=== PATIENT | female | born 1930 | race Caucasian/White ===

== ENCOUNTER → 2018-04-04 | Outpatient (CLI) | payer OTHER ==
[~2018-04-04] MED LIST: IOPAMIDOL (ISOVUE 370) 100 ML BTL IV ONE
== END ==
LOC: FIMAGING 13:27
PROVIDERS: ATTEND Internal Medicine Cardiovascular Disease
DX: R07.9 Chest pain, unspecified (principal); I48.0 Paroxysmal atrial fibrillation
CPT/HCPCS: 71275; Q9967; 82565-PO

== ENCOUNTER → 2018-04-08 | Outpatient (CLI) | payer OTHER | LOC: BHFA 09:30 | PROVIDERS: ATTEND Internal Medicine Cardiovascular Disease | DX: I48.0 Paroxysmal atrial fibrillation (principal) ==

== ENCOUNTER 2018-05-18 12:16 | Day surgery (SDC) | payer OTHER ==
[2018-05-18] MEDS ORDERED: MIDAZOLAM 2 MG/2 ML VIAL IVP ONE (13:30)
[2018-05-18] MEDS ORDERED: BENZOCAINE UNIT DOSE SPRAY HURRICAINE MM ONE (13:30)
[2018-05-18] MEDS ORDERED: NS 500 ML IV ONE (13:30)
[2018-05-18] MEDS ORDERED: ATROPINE SULFATE 1 MG/10 ML SYR IVP ONE (13:30)
[2018-05-18] MEDS ORDERED: fentaNYL 100 MCG/2 ML INJ IVP ONE (13:30)
[2018-05-18 15:27] LABS: INR 1.78 (0.83-1.16); PROTIME(PATIENT) 20.8 SEC (12.0-15.0)
--- NOTE | 2018-05-18 16:08 | PDGENHP ---
History & Physical Chief Complaint: symptomatic afib Relevant Physical Exam: s1s2 irreg cta [id number] Cardiorespiratory Assessment: for cv
--- NOTE | 2018-05-18 16:08 | PDANEPAE ---
ANE History of Present Illness here for CV ANE Past Medical History - Cardiovascular History Hx Hypertension: No Hx Arrhythmias: Yes Hx Chest Pain: No Hx Coronary Artery / Peripheral Vascular Disease: No Hx CHF / Valvular Disease: No Hx Palpitations: No - Pulmonary History Hx COPD: No Hx Asthma/Reactive Airway Disease: No Hx Recent Upper Respiratory Infection: No Hx Oxygen in Use at Home: No Hx Sleep Apnea: No - Neurologic History Hx Cerebrovascular Accident: No Hx Seizures: No Hx Dementia: No - Endocrine History Hx Diabetes: No Hypothyroid: Yes Hyperthyroid: No Obesity: no - Renal History Hx Renal Disorders: No ANE Review of Systems Review of systems is: negative Review of Systems: - Exercise capacity Exercise capacity: >=4 METS ANE Patient History - Allergies Allergies/Adverse Reactions: cephalexin Allergy (Verified 05/18/18 13:31) ciprofloxacin [From Cipro] Allergy (Verified 05/18/18 13:32) codeine Allergy (Verified 05/18/18 13:32) Penicillins Allergy (Verified 05/18/18 13:32) - Home Medications Home medications: home medication list seen and reviewed Home Medications: Amiodarone HCl 200 mg PO DAILY 05/18/18 [Last Taken 05/17/18 18:00] Glucosamine Sulfate 750 mg PO DAILY 05/18/18 [Last Taken 05/18/18 07:30] Lasix 20 - 40 mg PO DAILY 05/18/18 [Last Taken 05/18/18 07:30] Levothyroxine 75 mcg PO DAILY 05/18/18 [Last Taken 05/18/18 07:30] Metoprolol Succinate Xr 25 mg PO DAILY 05/18/18 [Last Taken 05/18/18 07:30] Pradaxa 150 mg PO BID 05/18/18 [Last Taken 05/18/18 07:30] Preservision Softgel 1 tab PO DAILY 05/18/18 [Last Taken 05/18/18 07:30] Prilosec 20 mg PO DAILY 05/18/18 [Last Taken 05/17/18 08:00] Spiriva Respimat 2 puffs IH DAILY 05/18/18 [Last Taken 05/17/18 18:00] Spironolactone 25 mg PO DAILY 05/18/18 [Last Taken 05/18/18 07:30] Vitamin D3 1,000 unit PO 05/18/18 [Last Taken 05/04/18 08:00] - NPO status NPO Status: no food or drink >8 hours - Smoking Hx Smoking Status: Former smoker ANE Labs/Vital Signs - Labs Result Diagrams: 05/18/18 14:45 - Vital Signs Height: 168 cm Weight: 70.3 kg ANE Physical Exam - Airway Neck exam: FROM Mallampati Score: Class 1 - Pulmonary Pulmonary: no respiratory distress - Cardiovascular Cardiovascular: regular rate and rhythym, irregularly irregular - ASA Status ASA Status: II ANE Anesthesia Plan Anesthesia Plan: GA with mask
[2018-05-18] MEDS ORDERED: PROPOFOL/EMULSION 500 MG/50 ML BOTTLE IV ONE (16:14)
--- NOTE | 2018-05-18 16:25 | PDCARD ---
Cardioversion Procedure Procedure: electrical cardioversion Indications: atrial fibrillation Consent: signed and in chart Anticoagulation: other (pradaxa) Procedural Details: Pads were placed in anterior-posterior position. Synchronized cardioversion attempt #1: 100J Results: normal sinus rhythm Conclusions: successful cardioversion Patient Problems: Problems Problem Status Onset Atrial fibrillation Acute
--- NOTE | 2018-05-18 16:40 | POSTANESTH ---
Post Anesthetic Evaluation Cardiovascular Status: Normal, Stable, Tx Over/Under Hydration Level of Consciousness/Mental Status: Can Participate in Eval Pain Control: Adequate, Prn Tx Ordered Nausea/Vomiting Control: Adequate, Prn Tx Ordered Complications Possibly Related to Anesthesia: None Noted
--- NOTE | 2018-05-19 06:06 | CPEKG ---
Test Reason : OPEN Blood Pressure : / mmHG Vent. Rate : 068 BPM Atrial Rate : 070 BPM P-R Int : 262 ms QRS Dur : 096 ms QT Int : 453 ms P-R-T Axes : -16 -32 037 degrees QTc Int : 482 ms Sinus rhythm Prolonged MO interval LAFB Confirmed by Gennaro Shea ([id number]) on 05/19/2018 6:05:58 AM Referred By: Confirmed By:Gennaro Shea
== END 2018-05-18 18:01 | disposition home or self-care (01) ==
LOC: FCATH 12:16
PROVIDERS: ATTEND Internal Medicine Cardiovascular Disease
PROC: 5A2204Z Restoration of Cardiac Rhythm, Single (ICD-10-PCS; principal; 2018-05-18)
DX: I48.0 Paroxysmal atrial fibrillation (principal)
CPT/HCPCS: J2704

== ENCOUNTER → 2018-06-01 | Outpatient (CLI) | payer OTHER | LOC: BHFA 09:30 | PROVIDERS: ATTEND Nurse Practitioner Adult Health | DX: I48.0 Paroxysmal atrial fibrillation (principal) ==